=== PATIENT | female | born 1970 | race Caucasian/White ===

== ENCOUNTER 2019-02-12 19:35 | Inpatient (IN) ==
[2019-02-12 20:20] LABS: Bilirubin,Urine Small (Negative); Blood,Urine Negative (Negative); Clarity,Urine Clear (Clear); Color,Urine Dark Yellow (Yellow); Glucose,Urine (UA) Normal (Normal); Ketones,Urine Trace mg/dL (Negative); Leukocyte Esterase,Urine Negative (Negative); Nitrite,Urine Negative (Negative); PH,Urine 5.5 pH Units (5.0-8.0); Protein,Urine Negative (Neg-Trace); Specific Gravity,Urine 1.027 (1.010-1.025); Urobilinogen,Urine Normal (Normal)
[2019-02-12 20:48] LABS: Basophils # 0.1 K/mcL (0.0-0.2); Basophils % 0.8 %; Eosinophils # 0.1 K/mcL (0.0-0.6); Eosinophils % 1.4 %; Hematocrit 38.7 % (35.3-44.9); Immature Granulocytes % 0.3 % (0-4); Lymphocytes # 2.5 K/mcL (0.6-4.6); Lymphocytes % 27.6 %; Mean Corpuscular HGB Conc 33.6 g/dL (31.6-35.5); Mean Corpuscular Hemoglobin 31.4 pg (28.0-33.3); Mean Corpuscular Volume 93.5 fL (83.0-100.0); Mean Platelet Volume 11.3 fL (9.4-12.4); Monocytes # 0.7 K/mcL (0.0-1.3); Monocytes % 7.5 %; Neutrophils # 5.5 K/mcL (1.6-8.9); Platelet Count 227 K/mcL (140-400); Red Blood Count 4.14 M/mcL (3.82-4.97); Red Cell Distribution Width 12.9 % (11.5-14.5); Segmented Neutrophils % 62.4 %; White Blood Count 8.9 K/mcL (4.3-11.1)
[2019-02-12 21:07] LABS: BUN/Creatinine Ratio 26 (6-26); Blood Urea Nitrogen 19 mg/dL (6-20); Carbon Dioxide 26 mEq/L (23-29); Chloride 102 mEq/L (98-107); Glucose 97 mg/dL (70-105); Osmolality,Calculated 284 (280-300); Potassium 3.6 mEq/L (3.5-5.1); Sodium 136 mEq/L (136-145); eGFR For African Americans > 60 (> 60); eGFR For Non-African Americans > 60 (> 60)
[2019-02-12] MEDS ORDERED: Isovue-370 500 ML BOTTLE IVP ONE (21:41)
[2019-02-12] MEDS ORDERED: *HR* FentaNYL (PF) 100 MCG/2 ML VIAL IVP ONE (23:22)
[2019-02-12] MEDS ORDERED: *HR* LORazepam 2 MG/ML VIAL IVP ONE (23:56)
[2019-02-13] MEDS ORDERED: Milk and Molasses Enema 200 ML RC ONE (00:44)
[2019-02-13] MEDS ORDERED: *HR* LORazepam 2 MG/ML VIAL ONE (02:07)
[2019-02-13] MEDS ORDERED: 0.9 % Sodium Chloride 1,000 ML IVC ONE ×2 (02:22→03:10)
[2019-02-13] MEDS ORDERED: 0.9 % Sodium Chloride 1,000 ML ONE (02:24)
[2019-02-13] MEDS ORDERED: *HR* FentaNYL (PF) 100 MCG/2 ML VIAL IVP ONE (03:00)
[2019-02-13] MEDS ORDERED: Naloxone 0.4 MG/ML INJ IVP PRN (07:58)
[2019-02-13] MEDS ORDERED: *HR* LORazepam 2 MG/ML VIAL IVP PRN (08:56)
[2019-02-13] MEDS: Venlafaxine XR (24 HR) 75 MG CAP.ER.24H PO SCH ×2 (09:09→17:30)
[2019-02-13] MEDS: tiZANidine 4 MG TABLET PO SCH ×3 (09:09→21:29)
[2019-02-13] MEDS: Bisacodyl 10 MG RECTAL SUPPOSITORY RC SCH ×2 (15:08→21:30)
[2019-02-13] MEDS: *HR* Heparin 5,000 UNIT/ML VIAL SQ SCH (17:30)
[2019-02-13] MEDS: Famotidine 20 MG TABLET PO SCH (21:28)
[2019-02-13] MEDS: diazePAM 5 MG TABLET PO SCH (21:29)
[2019-02-13] MEDS: Ziprasidone 80 MG CAPSULE PO SCH (21:33)
[2019-02-14 05:13] LABS: Hematocrit 38.6 % (35.3-44.9); Hemoglobin 12.6 g/dL (11.5-15.4); Mean Corpuscular HGB Conc 32.6 g/dL (31.6-35.5); Mean Corpuscular Hemoglobin 31.1 pg (28.0-33.3); Mean Corpuscular Volume 95.3 fL (83.0-100.0); Mean Platelet Volume 11.9 fL (9.4-12.4); Platelet Count 242 K/mcL (140-400); Red Blood Count 4.05 M/mcL (3.82-4.97); Red Cell Distribution Width 13.3 % (11.5-14.5)
[2019-02-14 05:33] LABS: Magnesium 1.9 mg/dL (1.6-2.6); Phosphorous 2.4 mg/dL (2.7-4.5)
[2019-02-14] MEDS: *HR* Heparin 5,000 UNIT/ML VIAL SQ SCH ×2 (06:04→17:27)
[2019-02-14] MEDS: tiZANidine 4 MG TABLET PO SCH ×3 (07:58→20:08)
[2019-02-14] MEDS: Venlafaxine XR (24 HR) 75 MG CAP.ER.24H PO SCH ×2 (07:58→16:49)
[2019-02-14] MEDS: Bisacodyl 10 MG RECTAL SUPPOSITORY RC SCH ×2 (07:59→20:15)
[2019-02-14] MEDS: levETIRAcetam 250 MG TABLET PO SCH (16:49)
[2019-02-14] MEDS: diazePAM 5 MG TABLET PO SCH (20:08)
[2019-02-14] MEDS: Famotidine 20 MG TABLET PO SCH (20:08)
[2019-02-14] MEDS: Ziprasidone 80 MG CAPSULE PO SCH (20:08)
[2019-02-15] MEDS: levETIRAcetam 250 MG TABLET PO SCH ×2 (06:05→18:52)
[2019-02-15] MEDS: *HR* Heparin 5,000 UNIT/ML VIAL SQ SCH ×2 (06:05→18:53)
[2019-02-15 07:09] LABS: Basophils # 0.1 K/mcL (0.0-0.2); Basophils % 0.9 %; Eosinophils # 0.3 K/mcL (0.0-0.6); Eosinophils % 3.2 %; Hematocrit 35.1 % (35.3-44.9); Hemoglobin 11.8 g/dL (11.5-15.4); Immature Granulocytes % 0.3 % (0-4); Lymphocytes # 3.1 K/mcL (0.6-4.6); Lymphocytes % 35.6 %; Mean Corpuscular HGB Conc 33.6 g/dL (31.6-35.5); Mean Corpuscular Hemoglobin 31.2 pg (28.0-33.3); Mean Corpuscular Volume 92.9 fL (83.0-100.0); Mean Platelet Volume 11.4 fL (9.4-12.4); Monocytes # 0.6 K/mcL (0.0-1.3); Monocytes % 6.3 %; Neutrophils # 4.7 K/mcL (1.6-8.9); Platelet Count 260 K/mcL (140-400); Red Blood Count 3.78 M/mcL (3.82-4.97); Red Cell Distribution Width 13.2 % (11.5-14.5); Segmented Neutrophils % 53.7 %; White Blood Count 8.7 K/mcL (4.3-11.1)
[2019-02-15 07:29] LABS: BUN/Creatinine Ratio 28 (6-26); Blood Urea Nitrogen 15 mg/dL (6-20); Calcium 9.3 mg/dL (8.6-10.3); Carbon Dioxide 26 mEq/L (23-29); Chloride 104 mEq/L (98-107); Glucose 67 mg/dL (70-105); Osmolality,Calculated 291 (280-300); Potassium 3.4 mEq/L (3.5-5.1); Sodium 141 mEq/L (136-145); eGFR For African Americans > 60 (> 60); eGFR For Non-African Americans > 60 (> 60)
[2019-02-15] MEDS: Venlafaxine XR (24 HR) 75 MG CAP.ER.24H PO SCH ×2 (08:42→18:53)
[2019-02-15] MEDS: tiZANidine 4 MG TABLET PO SCH ×3 (08:42→19:53)
[2019-02-15] MEDS: Bisacodyl 10 MG RECTAL SUPPOSITORY RC SCH ×2 (12:17→19:54)
[2019-02-15] MEDS: diazePAM 5 MG TABLET PO SCH (19:53)
[2019-02-15] MEDS: Ziprasidone 80 MG CAPSULE PO SCH (19:53)
[2019-02-15] MEDS: Famotidine 20 MG TABLET PO SCH (19:54)
[2019-02-16 02:04] LABS: Basophils # 0.1 K/mcL (0.0-0.2); Eosinophils # 0.2 K/mcL (0.0-0.6); Eosinophils % 2.8 %; Hemoglobin 10.8 g/dL (11.5-15.4); Immature Granulocytes % 0.1 % (0-4); Lymphocytes % 46.1 %; Mean Corpuscular HGB Conc 32.7 g/dL (31.6-35.5); Mean Corpuscular Hemoglobin 30.5 pg (28.0-33.3); Mean Corpuscular Volume 93.2 fL (83.0-100.0); Mean Platelet Volume 11.9 fL (9.4-12.4); Monocytes # 0.6 K/mcL (0.0-1.3); Monocytes % 6.3 %; Neutrophils # 3.8 K/mcL (1.6-8.9); Platelet Count 219 K/mcL (140-400); Red Blood Count 3.54 M/mcL (3.82-4.97); Red Cell Distribution Width 13.2 % (11.5-14.5); Segmented Neutrophils % 43.7 %; White Blood Count 8.7 K/mcL (4.3-11.1)
[2019-02-16 02:24] LABS: BUN/Creatinine Ratio 30 (6-26); Blood Urea Nitrogen 15 mg/dL (6-20); Carbon Dioxide 27 mEq/L (23-29); Chloride 107 mEq/L (98-107); Glucose 70 mg/dL (70-105); Osmolality,Calculated 287 (280-300); Potassium 3.2 mEq/L (3.5-5.1); Sodium 139 mEq/L (136-145); eGFR For African Americans > 60 (> 60); eGFR For Non-African Americans > 60 (> 60)
[2019-02-16] MEDS: *HR* Heparin 5,000 UNIT/ML VIAL SQ SCH ×2 (05:23→17:30)
[2019-02-16] MEDS: levETIRAcetam 250 MG TABLET PO SCH ×2 (05:23→17:32)
[2019-02-16] MEDS: tiZANidine 4 MG TABLET PO SCH ×3 (08:09→19:53)
[2019-02-16] MEDS: Bisacodyl 10 MG RECTAL SUPPOSITORY RC SCH ×2 (08:09→19:53)
[2019-02-16] MEDS: Venlafaxine XR (24 HR) 75 MG CAP.ER.24H PO SCH ×2 (08:09→17:32)
[2019-02-16] MEDS ORDERED: Potassium Chloride Elixir 20 MEQ/15 ML UDC PO ONE (10:49)
[2019-02-16] MEDS: Ziprasidone 80 MG CAPSULE PO SCH (19:52)
[2019-02-16] MEDS: Famotidine 20 MG TABLET PO SCH (19:53)
[2019-02-16] MEDS: diazePAM 5 MG TABLET PO SCH (19:53)
[2019-02-17] MEDS: Acetaminophen 325 MG TABLET PO PRN (01:16)
[2019-02-17] MEDS: *HR* Heparin 5,000 UNIT/ML VIAL SQ SCH ×2 (05:06→17:23)
[2019-02-17] MEDS: levETIRAcetam 250 MG TABLET PO SCH ×2 (05:06→17:23)
[2019-02-17] MEDS: Bisacodyl 10 MG RECTAL SUPPOSITORY RC SCH ×2 (09:30→20:46)
[2019-02-17] MEDS: Venlafaxine XR (24 HR) 75 MG CAP.ER.24H PO SCH ×2 (09:30→17:22)
[2019-02-17] MEDS: tiZANidine 4 MG TABLET PO SCH ×3 (09:30→20:44)
[2019-02-17] MEDS: 0.9 % Sodium Chloride 1,000 ML IVC SCH (09:45)
[2019-02-17] MEDS ORDERED: 0.9 % Sodium Chloride 1,000 ML ONE (11:02)
[2019-02-17 11:54] LABS: BUN/Creatinine Ratio 22 (6-26); Blood Urea Nitrogen 13 mg/dL (6-20); Calcium 9.7 mg/dL (8.6-10.3); Carbon Dioxide 29 mEq/L (23-29); Chloride 106 mEq/L (98-107); Glucose 91 mg/dL (70-105); Osmolality,Calculated 294 (280-300); Potassium 3.9 mEq/L (3.5-5.1); Sodium 142 mEq/L (136-145); eGFR For African Americans > 60 (> 60); eGFR For Non-African Americans > 60 (> 60)
[2019-02-17 13:22] LABS: Basophils # 0.1 K/mcL (0.0-0.2); Basophils % 1.7 %; Eosinophils # 0.1 K/mcL (0.0-0.6); Eosinophils % 2.3 %; Hematocrit 35.2 % (35.3-44.9); Hemoglobin 11.6 g/dL (11.5-15.4); Immature Granulocytes % 0.3 % (0-4); Lymphocytes % 49.5 %; Mean Corpuscular Hemoglobin 30.5 pg (28.0-33.3); Mean Corpuscular Volume 92.6 fL (83.0-100.0); Mean Platelet Volume 10.9 fL (9.4-12.4); Monocytes # 0.4 K/mcL (0.0-1.3); Neutrophils # 2.4 K/mcL (1.6-8.9); Platelet Count 346 K/mcL (140-400); Red Cell Distribution Width 13.3 % (11.5-14.5); Segmented Neutrophils % 40.2 %
[2019-02-17] MEDS: Ziprasidone 80 MG CAPSULE PO SCH (20:43)
[2019-02-17] MEDS: diazePAM 5 MG TABLET PO SCH (20:43)
[2019-02-17] MEDS: Famotidine 20 MG TABLET PO SCH (20:44)
[2019-02-18] MEDS: 0.9 % Sodium Chloride 1,000 ML IVC SCH (05:06)
[2019-02-18] MEDS: levETIRAcetam 250 MG TABLET PO SCH ×2 (05:06→18:37)
[2019-02-18] MEDS: *HR* Heparin 5,000 UNIT/ML VIAL SQ SCH ×2 (05:08→18:33)
[2019-02-18] MEDS: Acetaminophen 325 MG TABLET PO PRN ×2 (05:48→13:12)
[2019-02-18 09:36] LABS: Hematocrit 34.4 % (35.3-44.9); Hemoglobin 11.2 g/dL (11.5-15.4); Mean Corpuscular HGB Conc 32.6 g/dL (31.6-35.5); Mean Corpuscular Hemoglobin 30.2 pg (28.0-33.3); Mean Corpuscular Volume 92.7 fL (83.0-100.0); Mean Platelet Volume 11.7 fL (9.4-12.4); Platelet Count 280 K/mcL (140-400); Red Blood Count 3.71 M/mcL (3.82-4.97); Red Cell Distribution Width 13.4 % (11.5-14.5); Segmented Neutrophils % 58.5 %
[2019-02-18 09:37] LABS: Basophils # 0.1 K/mcL (0.0-0.2); Basophils % 1.7 %; Eosinophils # 0.1 K/mcL (0.0-0.6); Immature Granulocytes % 0.3 % (0-4); Lymphocytes % 33.8 %; Monocytes # 0.2 K/mcL (0.0-1.3); Monocytes % 3.7 %; Neutrophils # 3.5 K/mcL (1.6-8.9)
[2019-02-18 09:56] LABS: BUN/Creatinine Ratio 19 (6-26); Blood Urea Nitrogen 10 mg/dL (6-20); Carbon Dioxide 25 mEq/L (23-29); Chloride 108 mEq/L (98-107); Glucose 89 mg/dL (70-105); Osmolality,Calculated 287 (280-300); Sodium 139 mEq/L (136-145); eGFR For African Americans > 60 (> 60); eGFR For Non-African Americans > 60 (> 60)
[2019-02-18] MEDS: tiZANidine 4 MG TABLET PO SCH ×3 (09:59→21:19)
[2019-02-18] MEDS: Venlafaxine XR (24 HR) 75 MG CAP.ER.24H PO SCH ×2 (10:00→18:37)
[2019-02-18] MEDS: Bisacodyl 10 MG RECTAL SUPPOSITORY RC SCH ×2 (10:00→21:19)
[2019-02-18] MEDS: Ziprasidone 80 MG CAPSULE PO SCH (21:18)
[2019-02-18] MEDS: diazePAM 5 MG TABLET PO SCH (21:18)
[2019-02-18] MEDS: Famotidine 20 MG TABLET PO SCH (21:18)
[2019-02-19] MEDS: *HR* Heparin 5,000 UNIT/ML VIAL SQ SCH ×2 (07:01→14:36)
[2019-02-19] MEDS: levETIRAcetam 250 MG TABLET PO SCH ×2 (07:01→16:59)
[2019-02-19] MEDS: Venlafaxine XR (24 HR) 75 MG CAP.ER.24H PO SCH ×2 (09:52→16:59)
[2019-02-19] MEDS: Bisacodyl 10 MG RECTAL SUPPOSITORY RC SCH ×2 (09:52→22:22)
[2019-02-19] MEDS: tiZANidine 4 MG TABLET PO SCH ×3 (09:53→22:23)
[2019-02-19] MEDS: Ziprasidone 80 MG CAPSULE PO SCH (22:21)
[2019-02-19] MEDS: diazePAM 5 MG TABLET PO SCH (22:22)
[2019-02-19] MEDS: Famotidine 20 MG TABLET PO SCH (22:23)
[2019-02-20] MEDS: *HR* Heparin 5,000 UNIT/ML VIAL SQ SCH ×2 (05:32→17:03)
[2019-02-20] MEDS: levETIRAcetam 250 MG TABLET PO SCH ×3 (05:33→17:08)
[2019-02-20 06:26] LABS: Hematocrit 35.1 % (35.3-44.9); Hemoglobin 11.6 g/dL (11.5-15.4); Mean Corpuscular Hemoglobin 31.3 pg (28.0-33.3); Mean Corpuscular Volume 94.6 fL (83.0-100.0); Mean Platelet Volume 11.1 fL (9.4-12.4); Platelet Count 314 K/mcL (140-400); Red Blood Count 3.71 M/mcL (3.82-4.97); Red Cell Distribution Width 13.3 % (11.5-14.5)
[2019-02-20 06:42] LABS: White Blood Count 9.2 K/mcL (4.3-11.1)
[2019-02-20 07:33] LABS: BUN/Creatinine Ratio 21 (6-26); Blood Urea Nitrogen 12 mg/dL (6-20); Calcium 9.1 mg/dL (8.6-10.3); Carbon Dioxide 30 mEq/L (23-29); Chloride 103 mEq/L (98-107); Potassium 3.3 mEq/L (3.5-5.1); Sodium 138 mEq/L (136-145); eGFR For African Americans > 60 (> 60); eGFR For Non-African Americans > 60 (> 60)
[2019-02-20 07:49] LABS: Glucose 78 mg/dL (70-105); Osmolality,Calculated 285 (280-300)
[2019-02-20] MEDS: tiZANidine 4 MG TABLET PO SCH ×3 (07:56→20:53)
[2019-02-20] MEDS: Venlafaxine XR (24 HR) 75 MG CAP.ER.24H PO SCH ×2 (07:56→17:08)
[2019-02-20] MEDS: Bisacodyl 10 MG RECTAL SUPPOSITORY RC SCH ×3 (07:57→21:11)
[2019-02-20] MEDS: Ziprasidone 80 MG CAPSULE PO SCH (20:53)
[2019-02-20] MEDS: diazePAM 5 MG TABLET PO SCH (20:53)
[2019-02-20] MEDS: Famotidine 20 MG TABLET PO SCH (20:53)
[2019-02-21 02:46] LABS: BUN/Creatinine Ratio 25 (6-26); Blood Urea Nitrogen 14 mg/dL (6-20); Calcium 9.2 mg/dL (8.6-10.3); Carbon Dioxide 29 mEq/L (23-29); Chloride 106 mEq/L (98-107); Glucose 104 mg/dL (70-105); Osmolality,Calculated 287 (280-300); Potassium 3.7 mEq/L (3.5-5.1); Sodium 138 mEq/L (136-145); eGFR For African Americans > 60 (> 60); eGFR For Non-African Americans > 60 (> 60)
[2019-02-21 03:02] LABS: Hematocrit 34.9 % (35.3-44.9); Hemoglobin 11.5 g/dL (11.5-15.4); Immature Platelets 10.9 % (1.1-6.1); Mean Corpuscular Hemoglobin 31.3 pg (28.0-33.3); Mean Corpuscular Volume 94.8 fL (83.0-100.0); Mean Platelet Volume 11.3 fL (9.4-12.4); Red Blood Count 3.68 M/mcL (3.82-4.97); Red Cell Distribution Width 13.5 % (11.5-14.5); White Blood Count 9.9 K/mcL (4.3-11.1)
[2019-02-21] MEDS: levETIRAcetam 250 MG TABLET PO SCH ×2 (05:27→17:39)
[2019-02-21] MEDS: *HR* Heparin 5,000 UNIT/ML VIAL SQ SCH ×2 (05:34→17:39)
[2019-02-21] MEDS: Venlafaxine XR (24 HR) 75 MG CAP.ER.24H PO SCH ×2 (09:46→17:39)
[2019-02-21] MEDS: tiZANidine 4 MG TABLET PO SCH ×3 (09:47→21:59)
[2019-02-21] MEDS: Bisacodyl 10 MG RECTAL SUPPOSITORY RC SCH ×2 (09:48→21:55)
[2019-02-21] MEDS: Ziprasidone 80 MG CAPSULE PO SCH (21:59)
[2019-02-21] MEDS: diazePAM 5 MG TABLET PO SCH (21:59)
[2019-02-21] MEDS: Famotidine 20 MG TABLET PO SCH (21:59)
[2019-02-22 02:09] LABS: Hematocrit 37.2 % (35.3-44.9); Hemoglobin 12.4 g/dL (11.5-15.4); Mean Corpuscular HGB Conc 33.3 g/dL (31.6-35.5); Mean Corpuscular Hemoglobin 30.9 pg (28.0-33.3); Mean Corpuscular Volume 92.8 fL (83.0-100.0); Mean Platelet Volume 11.3 fL (9.4-12.4); Platelet Count 295 K/mcL (140-400); Red Blood Count 4.01 M/mcL (3.82-4.97); Red Cell Distribution Width 13.6 % (11.5-14.5); White Blood Count 9.9 K/mcL (4.3-11.1)
[2019-02-22 02:27] LABS: BUN/Creatinine Ratio 29 (6-26); Blood Urea Nitrogen 18 mg/dL (6-20); Calcium 9.6 mg/dL (8.6-10.3); Carbon Dioxide 28 mEq/L (23-29); Chloride 101 mEq/L (98-107); Glucose 95 mg/dL (70-105); Osmolality,Calculated 290 (280-300); Potassium 3.8 mEq/L (3.5-5.1); Sodium 139 mEq/L (136-145); eGFR For African Americans > 60 (> 60); eGFR For Non-African Americans > 60 (> 60)
[2019-02-22] MEDS: levETIRAcetam 250 MG TABLET PO SCH ×3 (05:32→15:45)
[2019-02-22] MEDS: *HR* Heparin 5,000 UNIT/ML VIAL SQ SCH ×2 (05:32→16:02)
[2019-02-22] MEDS: Venlafaxine XR (24 HR) 75 MG CAP.ER.24H PO SCH ×2 (08:29→15:57)
[2019-02-22] MEDS: tiZANidine 4 MG TABLET PO SCH ×3 (08:30→19:34)
[2019-02-22] MEDS: Bisacodyl 10 MG RECTAL SUPPOSITORY RC SCH ×2 (08:39→19:35)
[2019-02-22] MEDS ORDERED: Lidocaine -MPF 2% 2 ML VIAL ONE ×2 (09:07→10:28)
[2019-02-22] MEDS ORDERED: *HR* Propofol 200 MG/20 ML VIAL IVP ONE (09:07)
[2019-02-22] MEDS ORDERED: ceFAZolin 1,000 MG in 0.9 % Sodium Chloride Mini Bag 100 ML IVPB ONE (10:35)
[2019-02-22] MEDS: diazePAM 5 MG TABLET PO SCH (19:34)
[2019-02-22] MEDS: Ziprasidone 80 MG CAPSULE PO SCH (19:35)
[2019-02-23] MEDS: Acetaminophen 325 MG TABLET PO PRN (04:11)
[2019-02-23 05:31] LABS: Hematocrit 36.9 % (35.3-44.9); Hemoglobin 12.2 g/dL (11.5-15.4); Mean Corpuscular HGB Conc 33.1 g/dL (31.6-35.5); Mean Corpuscular Hemoglobin 31.5 pg (28.0-33.3); Mean Corpuscular Volume 95.3 fL (83.0-100.0); Mean Platelet Volume 11.2 fL (9.4-12.4); Platelet Count 271 K/mcL (140-400); Red Blood Count 3.87 M/mcL (3.82-4.97); Red Cell Distribution Width 13.6 % (11.5-14.5); White Blood Count 9.7 K/mcL (4.3-11.1)
[2019-02-23 05:49] LABS: BUN/Creatinine Ratio 33 (6-26); Blood Urea Nitrogen 22 mg/dL (6-20); Calcium 9.8 mg/dL (8.6-10.3); Carbon Dioxide 31 mEq/L (23-29); Chloride 100 mEq/L (98-107); Glucose 132 mg/dL (70-105); Osmolality,Calculated 291 (280-300); Potassium 3.8 mEq/L (3.5-5.1); Sodium 138 mEq/L (136-145); eGFR For African Americans > 60 (> 60); eGFR For Non-African Americans > 60 (> 60)
[2019-02-23] MEDS: *HR* Heparin 5,000 UNIT/ML VIAL SQ SCH ×2 (06:00→17:21)
[2019-02-23] MEDS: levETIRAcetam 250 MG TABLET PO SCH ×2 (06:06→17:08)
[2019-02-23] MEDS: tiZANidine 4 MG TABLET PO SCH ×3 (07:37→21:05)
[2019-02-23] MEDS: Venlafaxine XR (24 HR) 75 MG CAP.ER.24H PO SCH ×2 (07:37→17:08)
[2019-02-23] MEDS: Bisacodyl 10 MG RECTAL SUPPOSITORY RC SCH ×2 (07:38→21:03)
[2019-02-23] MEDS: Ziprasidone 80 MG CAPSULE PO SCH (21:06)
[2019-02-23] MEDS: diazePAM 5 MG TABLET PO SCH (21:06)
[2019-02-24] MEDS: *HR* Heparin 5,000 UNIT/ML VIAL SQ SCH (03:45)
[2019-02-24] MEDS: Acetaminophen 325 MG TABLET PO PRN ×2 (03:46→08:23)
[2019-02-24] MEDS: levETIRAcetam 250 MG TABLET PO SCH (03:46)
[2019-02-24 05:43] LABS: Hematocrit 35.6 % (35.3-44.9); Hemoglobin 11.5 g/dL (11.5-15.4); Mean Corpuscular HGB Conc 32.3 g/dL (31.6-35.5); Mean Platelet Volume 11.5 fL (9.4-12.4); Platelet Count 239 K/mcL (140-400); Red Blood Count 3.71 M/mcL (3.82-4.97); Red Cell Distribution Width 13.8 % (11.5-14.5); White Blood Count 8.9 K/mcL (4.3-11.1)
[2019-02-24 06:00] LABS: BUN/Creatinine Ratio 36 (6-26); Blood Urea Nitrogen 20 mg/dL (6-20); Calcium 9.6 mg/dL (8.6-10.3); Carbon Dioxide 30 mEq/L (23-29); Chloride 99 mEq/L (98-107); Glucose 146 mg/dL (70-105); Osmolality,Calculated 287 (280-300); Potassium 3.4 mEq/L (3.5-5.1); Sodium 136 mEq/L (136-145); eGFR For African Americans > 60 (> 60); eGFR For Non-African Americans > 60 (> 60)
[2019-02-24] MEDS: Venlafaxine XR (24 HR) 75 MG CAP.ER.24H PO SCH (08:10)
[2019-02-24] MEDS: tiZANidine 4 MG TABLET PO SCH (08:11)
[2019-02-24 11:10] VITALS: BP 100/64
== END 2019-02-24 13:00 | DRG 100 ==
LOC: 3BNU 19:35 → EMEROOARM 19:35 → SUATTDRO 02-13 05:23 → 3BNU 02-13 05:46
PROVIDERS: ADMIT Internal Medicine; ATTEND Internal Medicine